=== PATIENT | male | born 1960 | race Caucasian/White ===

== ENCOUNTER 2020-08-27 10:14 | Outpatient (CLI) | payer OTHER, SELFPAY | END 2020-08-27 23:59 | disposition home or self-care (01) | LOC: MLB 10:14 → EDSTATUS 09-04 12:30 | PROVIDERS: ATTEND Internal Medicine Gastroenterology | DX: Z20.828 Contact with and (suspected) exposure to other viral communicable diseases (principal) | CPT/HCPCS: U0003 ==